=== PATIENT | male | born 1995 | race Caucasian/White ===

== ENCOUNTER 2018-03-09 03:28 | Emergency (ER) | payer OTHER ==
[2018-03-09 04:25] LABS: #Basophils 0.1 thou/uL (0.0-0.2); #Eosinphils 0.1 thou/uL (0.0-0.7); #Lymphocytes 2.5 thou/uL (1.20-3.40); #Neutrophils 6.4 thou/uL (1.40-6.50); %Basophils 0.9 % (0.0-1.0); %Eosinophils 1.2 % (0.0-10.0); %Lymphocytes 24.9 % (21.0-51.0); %Monocytes 9.6 % (0.0-10.0); %Neutrophils 63.4 % (42.0-75.0); Hemoglobin 14.9 g/dL (14.0-18.0); Mean Corpuscular HGB CONC 32.2 g/dL (32.0-36.0); Mean Corpuscular Hemoglobin 28.4 pg (27.0-31.0); Mean Corpuscular Volume 88.2 fL (78.0-98.0); Platelet Count 334 thou/uL (130-400); RBC Distribution Width 12.5 % (11.5-14.5); Red Blood Cell (RBC) Count 5.24 mill/uL (4.70-6.10)
[2018-03-09] MEDS ORDERED: diphenhydrAMINE 50 MG/ML VIAL ONE ×2 (04:28→06:22)
[2018-03-09 04:43] LABS: ALT (SGPT) 19 U/L (8-55); AST (SGOT) 12 U/L (5-34); Albumin 4.1 g/dL (3.5-5.0); Alkaline Phosphatase 80 U/L (40-150); Anion Gap 11 mmol/L (10-20); BUN (Urea Nitrogen) 16 mg/dL (8.9-20.6); Bilirubin, Total 0.5 mg/dL (0.2-1.2); Calc. Creatinine Clearance 0 mL/min (70-130); Calcium 9.6 mg/dL (7.8-10.44); Carbon Dioxide 25 mmol/L (22-29); Chloride 104 mmol/L (98-107); Estimated GFR-MDRD 85; Globulin 3.1 g/dL (2.4-3.5); Glucose 108 mg/dL (70-105); Potassium 3.8 mmol/L (3.5-5.1); Protein, Total 7.2 g/dL (6.0-8.3); Sodium 136 mmol/L (136-145)
[2018-03-09] MEDS ORDERED: Promethazine HCl 25 MG/ML VIAL ONE (04:53)
[2018-03-09] MEDS ORDERED: Magnesium 2 GM/50 ML BAG (IN WATER) ONE (05:54)
[2018-03-09 06:16] LABS: Bilirubin Negative (Negative); Blood, Urine Negative (Negative); Clarity CLOUDY (Clear); Glucose, Urine (Dipstick) Negative (Negative); Leukocyte Trace (Negative); Nitrite Negative (Negative); Protein, Urine (Dipstick) Negative (Neg-Trace); Specific Gravity, Urine 1.021 (1.002-1.036); pH, Urine 6.5 (5.0-9.0)
[2018-03-09 06:19] LABS: Bacteria/HPF None Seen HPF (None Seen); Hyaline Casts/LPF 0-3 HYALINE CAST LPF (0-3 Hyaline); Pathc Cast-AUWi Flag 0.14 (0-2.49); RBC/HPF 0-3 HPF (0-3); Squamous Epithelial 0-3 HPF (0-3); WBC/HPF 0-3 HPF (0-3)
--- NOTE | 2018-03-09 08:22 | RAD ---
SHUNTOGRAM: HISTORY: [employer] NET OR TRAP shunt catheter. Headache. COMPARISON: None. FINDINGS: One view pelvis, 1 view abdomen, lateral view neck, lateral view calvarium, AP calvarium, and AP neck radiograph demonstrate a left-sided ventriculoperitoneal shunt catheter. Shunt tubing courses along the left aspect of the neck, left hemithorax, left upper quadrant, crossing midline in the abdomen, and terminating in the midline of the pelvis. Catheter appears to be intact. Visualized osseous structures are unremarkable. Bowel gas pattern is nonspecific. No consolidation or mass. No pleural effusion or pneumothorax. The visualized calvarium is intact. Aeration of the sinuses and mastoid air cells is symmetric. IMPRESSION: Intact ventriculoperitoneal shunt catheter. POS: SHYANNE
--- NOTE | 2018-03-09 09:23 | CT ---
PRELIMINARY REPORT/[facility]/EMERGENTY AFTER-HOURS PROCEDURE CT Head Without Intravenous Contrast EXAM DATE/TIME: 03/09/2018 3:58 AM CLINICAL HISTORY: 23 years old, male; Pain; Headache; Migraine; With aura; Other: Unknown TECHNIQUE: Axial computed tomography images of the head/brain without intravenous contrast. COMPARISON: No relevant prior studies available. FINDINGS: Tubes, catheters and devices: DRUM BARKER OPERATOR shunt catheter tip is in the 5 cm inferior left temporal arachnoid c yst. Brain: 5 cm inferior temporal arachnoid cyst. There is a left frontotemporal CSF density subdural col lection measuring up to 9 mm in maximum thickness. No acute blood. No brain edema. Midline shift: No midline shift. Ventricles: Normal. No ventriculomegaly. Bones/joints: Normal. No acute fracture. Sinuses: Normal as visualized. No acute sinusitis. Mastoid air cells: Normal as visualized. No mastoid effusion. Soft tissues: Normal. IMPRESSION: 1. DRUM BARKER OPERATOR shunt catheter tip is in the 5 cm inferior left temporal arachnoid cyst. 2. There is a left frontotemporal CSF density subdural collection measuring up to 9 mm in maximum thi ckness. This could be a chronic subdural hematoma or chronic subdural effusion/hygroma. No midline sh ift. Recommend comparison with any available prior studies, currently unavailable at time of interpretation. Thank you for allowing us to participate in the care of your patient. Dictated and Authenticated by: Edgar Branham MD 03/09/2018 4:46 AM Central Time ([place] & [place]) FINAL REPORT NONCONTRAST HEAD CT: HISTORY: DRUM BARKER OPERATOR shunt. Headache. COMPARISON: None. FINDINGS: This report is in agreement with the preliminary report by [facility]. There is an arachnoid cyst in the le ft middle cranial fossa. There is a DRUM BARKER OPERATOR shunt catheter which is within this arachnoid cyst. There is also evidence of a CSF density along the left frontotemporal region which may represent a subdural h ygroma. With regard to the ventricular system, no evidence of hydrocephalus. Comparison with prior imaging would be beneficial. POS: SHYANNE
--- NOTE | 2018-03-09 14:41 | CON ---
DATE OF CONSULTATION: 03/09/2018 HISTORY OF PRESENT ILLNESS: Mr. Dutton came to the emergency department last night for a sudden onse t of headache and blurry vision. The patient states that he had pressure in the back of his head as well as some nausea and no vomiting, headache and blurred vision. He states that he did not have any injury last night. States that he woke up and did not feel well. Neurosurgery was consulted glendy velazquez this patient had a shunt placed for an arachnoid cyst when he was 6 years old. He has not had any revisions and the last time he had it checked was when he was 11. The shunt was done in [place] by __ ___. According to his live-in girlfriend, they did have intercourse last night. Possible this is a post-coital headache. A CT of the head was done and a shuntogram CT shows a fluid buildup in the sub dural area. There is no shift noted that shunt is in place. Currently, when I enter the hospital [facility], Mr. Dutton is sleeping. He is not having any pain. No numbness or tingling. He denies any blur red vision. Denies any nausea. The patient is able to move all 4 extremities. He does not have any fever or chills and would like to go back to sleep. REVIEW OF SYSTEMS: The patient denies any fever or chills. Denies nausea, vomiting. Denies any lisa nges in his hearing. States that he was having blurred vision which is resolved now. States that he does not have any abdominal pain. No chest pain, no palpitations. Denies any constipation, diarrhe a. Does not have any muscle pain. No neck pain. Patient had headache earlier, denies it now. PAST MEDICAL HISTORY: Arachnoid cyst with shunt placement at 6 years old, recent diagnosis of anxiet y, depression. PAST SURGICAL HISTORY: NETWORK ANNOUNCER shunt. SOCIAL HISTORY: The patient denies any alcohol use, drug use or smoking history. [place] [facility] [place] with his girlfriend. 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 MEDICATIONS: Sertraline, alprazolam. ALLERGIES: No known drug allergies. PHYSICAL EXAMINATION: CONSTITUTION: Patient is resting comfortably in his hospital bed. He is afebrile, normotensive. Do es not appear to be toxic. He is pain free, alert, and oriented to person, place, and time. HEENT: Head is normocephalic, atraumatic. Hearing is intact. Vision is intact. Pupils are equal, round, reactive to light. Extraocular movements are intact. There are no nystagmus present, moist m ucous membranes. NECK: Normal range of motion, flexion, extension and pain free. No tenderness upon palpation. RESPIRATORY: Normal work of breathing room air. CARDIOVASCULAR: Normal S1, S2, regular rate and rhythm. MOTOR: Patient has normal strength in upper and lower extremities 5/5 in bilateral deltoids, biceps, triceps, and normal automatic driller and reamer strength, 5/5 bilateral hip flexion, knee flexion and extension, dorsiflexi on, plantar flexion. Sensation is intact bilaterally. NEUROLOGIC: The patient is alert and oriented to person, place and time. Cranial nerves are tested and intact. There is no pronator drift. There is normal sensation bilaterally. There is no deep te ndon reflex asymmetry. Speech is fluent, spontaneous, normal fund of knowledge. IMAGIN. CT head NETWORK ANNOUNCER shunt catheter tip is in the 5 cm inferior left temporal arachnoid cyst. 2. There is a left frontotemporal CSF density subdural collection measuring up to 9 mm in thickness. There is no midline shift. Shuntogram: Shunt appears to be in place and no visible disruption to the tubing. ASSESSMENT AND PLAN: This is a 23-year-old male who reports to the ED for evaluation of headache and blurred vision. The patient has a NETWORK ANNOUNCER shunt that was placed when he was 6. Evaluation of the [address] segun ws a collection of CSF in the subdural area. There is no midline shift. This fluid collection appea rs to be chronic and is not the cause of his symptoms. This is possibly a post-coil headache. The p atient is nontoxic, afebrile and he is pain free. Visual acuity is intact. No nausea or vomiting at this time. We would like to follow up with the patient in the office or with his prior neurosurgica l team.
== END 2018-03-09 08:45 | disposition home or self-care (01) ==
LOC: ERS 03:28
DX: R51 Headache (principal); H57.02 Anisocoria; F41.9 Anxiety disorder, unspecified; F32.9 Major depressive disorder, single episode, unspecified; Z79.899 Other long term (current) drug therapy
CPT/HCPCS: 36415; 70450; 75809; 80053; 81003; 81015; 85025; 96365; 96367; 96375; 96376; J1200; J2550

== ENCOUNTER 2018-03-14 01:09 | Emergency (ER) | payer OTHER ==
--- NOTE | 2018-03-14 10:45 | CT ---
PRELIMINARY REPORT/[facility]/EMERGENTY AFTER-HOURS PROCEDURE CT Head Without Intravenous Contrast EXAM DATE/TIME: 03/14/2018 2:00 AM CLINICAL HISTORY: 23 years old, male; Pain; Headache; Migraine; With aura; Does not respond to medication; Severity not specified; Prior surgery; Surgery date: 6+ months; Surgery type: Shunt; Patient HX: M22 reports to e d C/O blurred vision. PT reports blurred vision started on sunday. PT reports was seen prior to today and CT showed csf build up. PT reports he has a vp software shunt placed when he was young. PT reports h e currently has a GARCIA, and started vomiting. PT reports feels dizzy upon standing. PT reports pain, pr essure, is worse when he lays down, behind the eyes TECHNIQUE: Axial computed tomography images of the head/brain without intravenous contrast. COMPARISON: CT Brain WO Con 03/09/2018 3:58 AM FINDINGS: Brain: There is a LEFT sided intracranial drain/shunt with tip within the LEFT middle cranial fossa. There is a LEFT frontal hypoattenuating subdural collection which is similar to prior measuring up to 9 mm in short axis possibly representing chronic subdural hemorrhage versus cystic hygroma. Ventricles: Normal. No ventriculomegaly. Bones/joints: Patient is post LEFT frontotemporal craniotomy. Sinuses: Normal as visualized. No acute sinusitis. Mastoid air cells: Normal as visualized. No mastoid effusion. Soft tissues: Normal. IMPRESSION: 1. Since CT head performed 03/09/18, no significant interval change. 2. Stable LEFT frontal subdural collection as above. 3. Left-sided cranial drain with tip within the middle cranial fossa. 4. No acute intracranial hemorrhage. Thank you for allowing us to participate in the care of your patient. Dictated and Authenticated by: Jayden Dunn MD 03/14/2018 2:19 AM Central Time ([place] & [place]) FINAL REPORT EMERGENCY AFTER HOURS CT BRAIN: Date: 03/14/18 IMPRESSION: I agree with the preliminary interpretation given by Anjelica. POS: TPC
== END 2018-03-14 04:08 | disposition home or self-care (01) ==
LOC: ERS 01:09
DX: R51 Headache (principal); F41.9 Anxiety disorder, unspecified; F32.9 Major depressive disorder, single episode, unspecified; Z79.899 Other long term (current) drug therapy
CPT/HCPCS: 70450

== ENCOUNTER 2018-03-21 12:00 | Inpatient (IN) | payer OTHER ==
--- NOTE | 2018-03-22 07:41 | HP ---
HISTORY OF PRESENT ILLNESS: A 23-year-old male who presents for followup from the hospital visit on 03/09/2018. The patient has been seen in the emergency department for severe headache with blurred v ision. He states that the headache went away following medications in the ER; however, last Sunday t he headaches returned and the left eye became blurry. He states that he was in the emergency departm ent again on 03/14/2018. The patient has had 2 CT scans of his brain which are unchanging showing a left-sided subdural collection of CSF. The patient had a shunt placed in an arachnoid cyst when he w as 6 years old. He has not had any revisions of the shunt. The patient states that he has had const ant headache and blurred vision in left eye, Sunday he was began vomiting up any solid food. He jocelin es any fever or chills. No sore throat, abdominal pain. The patient states that he has been slightl y off balance recently and he does not have an credit balance specialist. REVIEW OF SYSTEMS: A 10-point review of systems is negative other than stated above in the HPI. PAST MEDICAL HISTORY: Anxiety, depression, headaches, arachnoid cyst. PAST SURGICAL HISTORY: BUTTON SAWYER shunt in 2000. FAMILY HISTORY: Father is alive. Mother is alive, diagnosed with diabetes and hypertension. One ild that is . SOCIAL HISTORY: The patient is a nonsmoker, does not use other tobacco products, alcohol, or drugs. 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 MEDICATIONS: Xanax and sertraline. ALLERGIES: No known drug allergies. PHYSICAL EXAMINATION: GENERAL: The patient is alert and oriented to person, place and time. Does not appear to be in any visible distress. HEENT: Head is normocephalic, atraumatic. Pupils are equal, round, reactive to light. Extraocular movements are intact. Pupils are intact. Hearing is intact. Moist mucous membranes. NECK: Soft, supple. No masses are noted. Range of motion is intact and nonpainful. RESPIRATORY: Normal work of breathing room air. CARDIOVASCULAR: Regular rate and rhythm. Normal S1, S2. NEUROLOGIC: Awake, alert and oriented x3. Memory, attention, fund of knowledge and language are nor mal. Cranial nerves normal. Cranial nerves III-XII are intact. Left eye decreased visual field acu ity. Upper extremity, 5/5 bilateral strength, deltoid, biceps, triceps, wrist extension, finger exte nsion, finger intrinsics, sensation equal bilaterally. Symmetric reflexes bilaterally. Gait and sta tion normal. Sit to stand normal, gait shows some level, but no step-off to the side. ASSESSMENT AND PLAN: Acute non intractable headaches, post BUTTON SAWYER shunt placement, arachnoid cyst. Dr. Lemons has offered surgery to remove current BUTTON SAWYER shunt and place a monitor in current arachnoid cys t and monitor for change in pressure.
[2018-03-22] MEDS ORDERED: Thrombin 5000 UNITS/5 ML VIAL ONE (10:48)
[2018-03-22] MEDS ORDERED: Sodium Chloride 0.9% 10 ML ONE (10:48)
[2018-03-22] MEDS ORDERED: Lidocaine 0.5%/Epinephrine 1:200,000 50 ml Vial ONE (10:48)
[2018-03-22] MEDS ORDERED: CEFAZOLIN 2 GM/50 ML BAG ONE (11:11)
[2018-03-22] MEDS ORDERED: Fentanyl 100 MCG/2 ML VIAL ONE ×3 (11:34→16:17)
[2018-03-22 11:37] LABS: INR-International Normal Ratio 1.1; Prothrombin Time 13.8 SEC (12.0-14.7)
[2018-03-22 11:38] LABS: PTT 30.5 SEC (22.9-36.1)
[2018-03-22] MEDS ORDERED: PROPOFOL 20 ML ONE (13:20)
[2018-03-22] MEDS ORDERED: Acetaminophen/Codeine 30-300mg Tablet PO PRN ×2 (13:44)
[2018-03-22] MEDS ORDERED: Bisacodyl 10 MG SUPP PR PRN (13:44)
[2018-03-22] MEDS ORDERED: Mag-Al 1200 mg/1200 mg/30 ML UDCUP PO PRN (13:44)
[2018-03-22] MEDS ORDERED: diphenhydrAMINE 50 MG/ML VIAL IVP PRN (13:44)
[2018-03-22] MEDS ORDERED: diphenhydrAMINE 25 MG CAP PO PRN (13:44)
[2018-03-22] MEDS ORDERED: traMADol HCl 50 MG TAB PO PRN ×2 (13:44)
[2018-03-22] MEDS ORDERED: Acetaminophen 650 MG Suppository PR PRN (13:44)
[2018-03-22] MEDS ORDERED: Milk Of Magnesia 30 ML UDCUP PO PRN (13:44)
[2018-03-22] MEDS ORDERED: tiZANidine HCl 4 MG TAB PO PRN (13:44)
[2018-03-22] MEDS ORDERED: Ondansetron HCl/PF 4 MG/2 ML Vial IVP PRN (13:46)
[2018-03-22] MEDS ORDERED: Lidocaine 1% PF 5 ML VIAL ONE (14:00)
[2018-03-22] MEDS ORDERED: Glycopyrrolate 0.2 MG/ML 5 ML SYRINGE ONE (14:00)
[2018-03-22] MEDS ORDERED: Ondansetron PF 4 MG/2 ML Vial ONE (14:00)
[2018-03-22] MEDS ORDERED: PROPOFOL 200 MG/20 ML VIAL ONE (14:00)
[2018-03-22] MEDS: Sodium Chloride 0.9% 1,000 ML IV SCH (18:09)
[2018-03-22] MEDS: Ondansetron PF 4 MG/2 ML Vial IVP PRN (18:44)
[2018-03-22 19:44] VITALS: BMI 34.7
[2018-03-22] MEDS: CEFAZOLIN 2 GM/50 ML BAG IVPB SCH (20:37)
[2018-03-22] MEDS: ALPRAZolam 0.25 MG TAB PO PRN (20:47)
[2018-03-22] MEDS: Morphine 4 MG/ML VIAL SLOW IVP PRN (21:31)
[2018-03-23] MEDS: Morphine 4 MG/ML VIAL SLOW IVP PRN ×2 (01:21→09:23)
[2018-03-23] MEDS: Sodium Chloride 0.9% 1,000 ML IV SCH ×2 (03:23→16:40)
[2018-03-23] MEDS: ALPRAZolam 0.25 MG TAB PO PRN ×2 (03:24→13:58)
[2018-03-23] MEDS: CEFAZOLIN 2 GM/50 ML BAG IVPB SCH ×3 (04:41→20:27)
[2018-03-23] MEDS: Ondansetron PF 4 MG/2 ML Vial IVP PRN ×3 (08:39→20:38)
--- NOTE | 2018-03-23 09:58 | PRG ---
DATE OF SERVICE: 03/23/2018 SUBJECTIVE: I see Mr. Dutton. He is alert and generally appropriate, although slightly drowsy. He is complaining of headache and some nausea. His ICPs have been oscillating between 18 and 22 and ass ociated with significant symptoms. Draining 10 mL of CSF seems to alleviate the symptoms and reduces the ICP very briefly. This has been going on mostly through the night. At this point, I think we have demonstrated that he does have slightly elevated ICPs associated with symptoms. We will begin to drain 10 mL hourly as a matter of routine.
[2018-03-23] MEDS: Acetaminophen 1,000 MG in Premix Bag 1 BAG IVPB PRN (19:08)
[2018-03-24] MEDS: Acetaminophen 1,000 MG in Premix Bag 1 BAG IVPB PRN ×4 (01:50→19:46)
[2018-03-24 02:23] LABS: Anion Gap 12 mmol/L (10-20); BUN (Urea Nitrogen) 12 mg/dL (8.9-20.6); Calc. Creatinine Clearance 240 mL/min (70-130); Calcium 9.5 mg/dL (7.8-10.44); Carbon Dioxide 24 mmol/L (22-29); Chloride 107 mmol/L (98-107); Estimated GFR-MDRD Greater than 90; Glucose 124 mg/dL (70-105); Potassium 3.8 mmol/L (3.5-5.1); Sodium 139 mmol/L (136-145)
[2018-03-24] MEDS: CEFAZOLIN 2 GM/50 ML BAG IVPB SCH ×3 (04:46→19:47)
[2018-03-24] MEDS: Ondansetron PF 4 MG/2 ML Vial IVP PRN ×2 (06:02→11:22)
[2018-03-24] MEDS: Morphine 4 MG/ML VIAL SLOW IVP PRN (06:02)
[2018-03-24] MEDS: Sodium Chloride 0.9% 1,000 ML IV SCH ×2 (06:08→19:47)
[2018-03-24] MEDS: ALPRAZolam 0.25 MG TAB PO PRN (08:33)
[2018-03-25] MEDS: CEFAZOLIN 2 GM/50 ML BAG IVPB SCH ×3 (03:40→20:50)
[2018-03-25] MEDS: Acetaminophen 1,000 MG in Premix Bag 1 BAG IVPB PRN ×3 (03:40→19:48)
--- NOTE | 2018-03-25 07:18 | PRG ---
DATE OF SERVICE: 03/25/2018 SUBJECTIVE: Mr. Abelardo Dutton was seen in the ICU this morning. His drain is open at 5 cm of water a nd the CSF reservoir is nearly full. He has no headache or blurry vision currently. He gotten heada ches over the weekend in fact, headache and pain became so severe and he had brief apneic episodes co rrelating with a very high intracranial pressure. Eventually, the drain was opened. History from strongly suggests that he is dependent on drainage for management of intracranial pressure. Currently, the vitals are all stable. The pressure is 5 cm as the drain is open and he is awake and alert and answering questions appropriately. We will make a plan for CT scan today. We will send the CSF for culture and Gram stain. We looked a t our surgical schedule for placement of a new cystoperitoneal shunt system on Sunday or Sunday.
--- NOTE | 2018-03-25 07:45 | OP ---
DATE OF PROCEDURE: 03/22/2018 SURGEON: Dr. Lemons. AUCTIONEER TOBACCO: Aby Roman PA-C PREOPERATIVE DIAGNOSES: Failure of the cystoperitoneal shunt, external hydrocephalus. POSTOPERATIVE DIAGNOSES: Failure of the cystoperitoneal shunt, external hydrocephalus. OPERATIVE PROCEDURE: Removal of a cystoperitoneal shunt system, placement of arachnoid cyst drain an d connection of pressure monitoring device. PREOPERATIVE MEDICATION: Ancef 2 grams IV. DRAIN NUMBER: One. DRAIN TYPE: Arachnoid cyst drain. OPERATIVE DICTATION: The patient was brought to the operating room. General endotracheal anesthesia was induced. The left shoulder was bumped. Hair was removed from the abdomen, chest, and scalp. W e identified the previous incision for arachnoid cyst shunt placement. The left side of the scalp, t he neck, the chest and the abdomen were sterilely prepped and draped. We opened the previous incisio n of the cranial cavity and identified the arachnoid cyst drain and the valve device. We brought the valve out of its pocket. We attempted to remove all of the peritoneal portion of the catheter from the same incision, but it snapped in the neck. We then made a small incision over the clavicle and r emoved the peritoneal catheter in its entirety. We placed a hemostat on the arachnoid cyst portion o f the drain. We removed it and measured its length. We replaced exactly that amount of length of th e arachnoid cyst drain and tunneled it posteriorly through a separate stab incision and connected it to the Ryan drain device. We closed the cranial incision and the clavicle incision as well as the abdominal incision that was made to explore the distal portion of the shunt. Sterile dressings were applied. This was a clean case and no contamination.
[2018-03-25] MEDS: Sodium Chloride 0.9% 1,000 ML IV SCH ×2 (08:55→23:50)
--- NOTE | 2018-03-25 09:52 | CT ---
BRAIN CT WITHOUT IV CONTRAST: HISTORY: A 23-year-old male with a history of arachnoid cyst. FINDINGS: Postoperative left frontal craniotomy change with drain placed in the left anterior temporal cyst. N o significant change in the left-sided extraaxial fluid collection. IMPRESSION: New postoperative left-sided craniotomy change with drainage catheter placed within the left anterior middle cranial fossa fluid collection. No significant change from 03/14/2018. No new hemorrhage or mass effect. POS: SHYANNE
[2018-03-25] MEDS: Ondansetron PF 4 MG/2 ML Vial IVP PRN (19:55)
[2018-03-25] MEDS: ALPRAZolam 0.25 MG TAB PO PRN (23:45)
[2018-03-26] MEDS: Acetaminophen 1,000 MG in Premix Bag 1 BAG IVPB PRN (01:51)
[2018-03-26] MEDS: CEFAZOLIN 2 GM/50 ML BAG IVPB SCH ×3 (04:12→20:19)
--- NOTE | 2018-03-26 07:06 | PRG ---
DATE OF SERVICE: 03/26/2018 SUBJECTIVE: I saw Mr. Dutton in the ICU this morning. Yesterday evening, he had a headache and a drain was moved from 5 cm of water to 0 cm of water. He thinks this helped with his head pain. He had no neurological decline. This morning, Mr. Dutton has minimal headache if any. He is wide awake. He is alert. He is answering questions. There is no cranial neuropathy. There is no neurological deficit. The drain site looks clean and dry. We are making plans for Mr. Dutton to have his shunt replaced. We will have the lowest pressure valve we can find or a valveless system in place. My only concern with a valveless system is reflux through the tubing. We tried to find a Delta 0.5 valve or [address] a programmable valve and leave it on the lowest setting possible. The timing of the surgery will be up to Mr. Dutton, we can likely get it done this afternoon or tomorrow afternoon. We will give this as preference. If he decides for tomorrow, then we will allow him to eat and keep him n.p.o. after midnight tonight. Consent: I discussed the indications, risks, benefits, alternative, and expected outcomes of placing a new cystoperitoneal shunt. The risks discussed included, but were not limited to, bleeding, infection, brain damae, seizure, stroke, visual loss, dependence for care, abdominal organ injury, peritonitis, cardiopulmonary complications of anesthesia, and . He understands and is willing to proceed. HEIDI
--- NOTE | 2018-03-26 08:47 | CT ---
PRELIMINARY REPORT/[facility]/EMERGENTY AFTER-HOURS PROCEDURE CT Head Without Intravenous Contrast EXAM DATE/TIME: 03/26/2018 5:12 AM CLINICAL HISTORY: 23 years old, male; Condition or disease; Other: S/P crani; Prior surgery; Surgery date: Postoperativ e (0-2 days); Patient HX: F/u S/P craniotomy TECHNIQUE: Axial computed tomography images of the head/brain without intravenous contrast. COMPARISON: CT Brain WO Con 03/25/2018 8:04 AM FINDINGS: Brain: Stable surgical changes including left temporal craniotomy, subdural drain in stable position along the tip of the left temporal lobe and surgical luz in the left temporal scalp. Again seen i s an unchanged air and fluid collection along the left frontal lobe and the tip of the left temporal lobe. No new mass effect, midline shift or extra axial fluid collections. Benton-white matter different iation is normal. Ventricles: Normal. No ventriculomegaly. Bones/joints: Normal. No acute fracture. Sinuses: Normal as visualized. No acute sinusitis. Mastoid air cells: Normal as visualized. No mastoid effusion. Soft tissues: Normal. IMPRESSION: Stable surgical changes and left frontal and temporal fluid collection. Thank you for allowing us to participate in the care of your patient. Dictated and Authenticated by: Rian Westfall MD 03/26/2018 5:47 AM Central Time ([place] & [place]) FINAL REPORT CT BRAIN WITHOUT CONTRAST: FINDINGS/IMPRESSION: I agree with the findings and impression given in the preliminary report per [facility] physician. There ar e stable post-surgical changes of the left calvarium with extraaxial fluid collection along the left frontal and temporal convexities. POS: TPC
[2018-03-26] MEDS ORDERED: Lidocaine 0.5%/Epinephrine 1:200,000 50 ml Vial ONE (11:37)
[2018-03-26] MEDS ORDERED: Sodium Chloride 0.9% 10 ML ONE (11:37)
[2018-03-26] MEDS ORDERED: Thrombin 5000 UNITS/5 ML VIAL ONE (11:37)
[2018-03-26] MEDS: Sodium Chloride 0.9% 1,000 ML IV SCH (12:05)
[2018-03-26] MEDS ORDERED: Fentanyl 100 MCG/2 ML VIAL ONE ×2 (12:36→14:07)
[2018-03-26] MEDS ORDERED: Scopolamine 1.5 mg/72 hour Patch ONE (12:48)
[2018-03-26] MEDS ORDERED: Vancomycin HCl 20 MG, Gentamicin (PEDI) 8 MG, Admixture Fee 1 EACH in Sodium Chloride 0... FS SCH (13:15)
[2018-03-26] MEDS ORDERED: PACU-Morphine 4MG/ML VIAL SLOW IVP PRN (13:56)
[2018-03-26] MEDS ORDERED: Morphine Sulfate 2 MG/ML SYRINGE SLOW IVP PRN (13:56)
[2018-03-26] MEDS ORDERED: Ondansetron HCl/PF 4 MG/2 ML Vial IVP PRN (13:56)
[2018-03-26] MEDS ORDERED: HYDROmorphone 2 MG/ML VIAL SLOW IVP PRN (13:56)
[2018-03-26] MEDS ORDERED: Glycopyrrolate 0.2 MG/ML 5 ML SYRINGE ONE (16:08)
[2018-03-26] MEDS ORDERED: Ondansetron PF 4 MG/2 ML Vial ONE (16:08)
[2018-03-26] MEDS ORDERED: Dexamethasone 20 MG/5 ML VIAL ONE (16:08)
[2018-03-26] MEDS ORDERED: Metoclopramide HCl 10 MG/2 ML VIAL ONE (16:08)
[2018-03-26] MEDS ORDERED: PROPOFOL 200 MG/20 ML VIAL ONE (16:08)
[2018-03-26] MEDS ORDERED: PHENYLEPHRINE-NS 100 MCG/ML 10 ML SYRINGE ONE (16:08)
[2018-03-26] MEDS ORDERED: Lidocaine 1% PF 5 ML VIAL ONE (16:08)
[2018-03-26] MEDS: Acetaminophen 325 MG TAB PO PRN (20:17)
--- NOTE | 2018-03-26 20:23 | OP ---
DATE OF SURGERY: 03/26/2018 PERFORMED BY: Mildred Lemons M.D MEDICAL ADMINISTRATIVE: Aby Roman PA-C PREOPERATIVE INDICATION: Prevent neurological deterioration. PREOPERATIVE DIAGNOSIS: Left middle fossa arachnoid cyst, shunt dependent. POSTOPERATIVE DIAGNOSIS: Left middle fossa arachnoid cyst, shunt dependent. OPERATIVE PROCEDURE: The patient was brought from the ICU to the operating theater. General endotra cheal anesthesia was induced. The patient was positioned supine on the operating table with his head turned to the right and supported by gel-filled donut-shaped headrest. The left shoulder was bumped slightly with a folded towel. More hair was removed from the abdomen, chest, neck, and scalp from l ast week. The arachnoid cyst drainage system was opened and 15 mL of CSF were allowed to emanate. T he scalp was sterilely prepped once and then the drain was removed as well as luz from the crania l incision. The head, neck, chest, and abdomen were sterilely prepped again. We draped in the usual fashion for shunt placement. We then began our operation by opening of an incision about 2 fingerbr eadths under the margin of the rib cage on the right side. We controlled bleeding with gentle bipola r cautery. We dissected down to the fascia. The fascia was incised sharply and we spread rectus mus georgiana until we reached the inferior portion of the fascia. The fascia was opened again and preperitone al fat was visualized. One fold of peritoneum was seen in the preperitoneal fat and placed hemostats on it. We brought a fold of peritoneum up through the incision between 2 hemostats. We cut between them and visualized omental fat and peristalsis. We then placed hemostats around the peritoneal ope vance and passed a pursestring suture of 4-0 Silk. We then turned our attention to cranial incisions. We opened a curvilinear incision posterior and superior to the pinna on the left side and created a pocket for the valve. We tunneled with a shunt passer from that incision all the way to the abdomin al incision and then passed the peritoneal catheter through that trajectory. We then opened the prio r anterior cranial incision and placed a self-retaining retractor. We found the entry point into the arachnoid cyst with CSF emanating. We placed 4 cm of the ventricular catheter into the arachnoid cy st and tunneled the distal ends under the scalp to the incision behind the pinna. Here we connected a low pressure flow control valve to the peritoneal catheter in the appropriate direction. Proximal portion was placed in sterile saline with bacitracin irrigation. It was pumped until the irrigant ra n out the distal end in our peritoneal incision. We then injected 2 mL of antibiotic solution contai vance 10 mg of vancomycin and 4 mg of gentamicin into the arachnoid cyst catheter. We quickly cut the catheter to appropriate length and attached it to the proximal end of the valve. We reinforced both valve attachments with silk suture and then we took slack out of the system by pulling the peritonea l end of the catheter through that incision. We tacked the valve down to the periosteum. We ensured that the tubing from the arachnoid cyst to the valve was not kinked by creating connections between her flaps and the periosteum, so that there was a smooth curve from the arachnoid cyst all the way to the valve without any kinking. We irrigated with copiously with bacitracin irrigation. We pumped t he valve and made sure that CSF emanated from the distal end. We closed the cranial incisions. We p assed the distal end of the peritoneal catheter into the peritoneum and tightened our pursestring elizabet und it. We closed the fascia with interrupted 2-0 Vicryls and closed the fat and dermis. We closed the fat as well around the peritoneal catheter. All three incisions were closed in anatomic layers a nd sterile dressings were applied. This was a clean case and no contamination.
[2018-03-27] MEDS: Acetaminophen 325 MG TAB PO PRN (03:34)
[2018-03-27] MEDS: CEFAZOLIN 2 GM/50 ML BAG IVPB SCH (03:34)
--- NOTE | 2018-03-27 07:53 | PRG ---
DATE OF SERVICE: 03/27/2018 Mr. Dutton is 1 day out from creation of a new arachnoid cyst to peritoneal shunt. He had ICP elevat ions over the last weekend correlated with headache and neurological trouble. Therefore, we deemed h im dependent on shunting. He was taken to the operating room yesterday where a new shunt was placed. Surgery was uncomplicated and he feels great this morning. He wants to get home. Overnight, the vitals have been stable. His neurological examination is quite good. He has some vis ual disturbance in the left eye that remains, but the ophthalmology appointment will be recommended. As an outpatient, his casting associate feels he had papilledema and I would give the new low pressure valve a few weeks to months to improve the vision, unless there is some other issue can be determined by his eye doctor. Follow up arrangements have been made in our office to check his incisions in ab out 2 weeks. I asked him to keep the dressings on until tomorrow and then start showering thereafter .
[2018-03-27 08:19] VITALS: TEMP 98.9
== END 2018-03-27 08:55 | disposition home or self-care (01) | DRG 909 ==
LOC: SURG A 03-22 10:52 → EDSTATUS 03-22 12:00 → CCU 03-22 17:45
PROVIDERS: ADMIT Neurological Surgery; ATTEND Neurological Surgery
PROC: 009630Z Drainage of Cerebral Ventricle with Drainage Device, Percutaneous Approach (ICD-10-PCS; principal; 2018-03-22)
PROC: 0WPG0JZ Removal of Synthetic Substitute from Peritoneal Cavity, Open Approach (ICD-10-PCS; 2018-03-22)
DX: T85.618A Breakdown (mechanical) of other specified internal prosthetic devices, implants and grafts, initial encounter (principal); Y83.8 Other surgical procedures as the cause of abnormal reaction of the patient, or of later complication, without mention of misadventure at the time of the procedure; Z01.812 Encounter for preprocedural laboratory examination
CPT/HCPCS: 36415; 70450; 80048; 81002; 83930; 83935; 84300; 85025; 85610; 85730; 87070; 87071; 87205; J0131; J1580; J2001; J2270; J2405; J2704; J3010; J3370; J3490

== ENCOUNTER 2018-03-21 12:13 | Outpatient (CLI) | payer OTHER ==
[2018-03-21 13:27] LABS: #Basophils 0.1 thou/uL (0.0-0.2); #Eosinphils 0.1 thou/uL (0.0-0.7); #Monocytes 0.7 thou/uL (0.11-0.59); #Neutrophils 6.4 thou/uL (1.40-6.50); %Basophils 0.6 % (0.0-1.0); %Eosinophils 1.2 % (0.0-10.0); %Lymphocytes 21.3 % (21.0-51.0); %Monocytes 7.5 % (0.0-10.0); %Neutrophils 69.3 % (42.0-75.0); Hemoglobin 14.7 g/dL (14.0-18.0); Mean Corpuscular Hemoglobin 28.7 pg (27.0-31.0); Mean Corpuscular Volume 89.5 fL (78.0-98.0); Mean Platelet Volume 8.6 fL (7.4-10.4); Platelet Count 291 thou/uL (130-400); RBC Distribution Width 12.7 % (11.5-14.5); Red Blood Cell (RBC) Count 5.13 mill/uL (4.70-6.10); White Blood Cell (WBC) Count 9.2 thou/uL (4.8-10.8)
== END 2018-03-21 12:14 | disposition home or self-care (01) ==
LOC: LABBT 12:13
PROVIDERS: ATTEND Neurological Surgery
DX: Z01.812 Encounter for preprocedural laboratory examination (principal); T85.618A Breakdown (mechanical) of other specified internal prosthetic devices, implants and grafts, initial encounter
CPT/HCPCS: 85025

== ENCOUNTER 2018-04-15 19:57 | Emergency (ER) | payer OTHER ==
[2018-04-15] MEDS ORDERED: diphenhydrAMINE 50 MG/ML VIAL ONE (21:03)
[2018-04-15] MEDS ORDERED: Metoclopramide HCl 10 MG/2 ML VIAL ONE (21:03)
[2018-04-15] MEDS ORDERED: Ondansetron PF 4 MG/2 ML Vial ONE (21:24)
--- NOTE | 2018-04-15 21:36 | CT ---
CT HEAD: 04/15/2018 HISTORY: Headaches. Vomiting. Shunt placement. COMPARISON: 03/26/2018 TECHNIQUE: Serial axial CT imaging is obtained at 4.8 mm intervals, from the vertex through the skull base, with out contrast. FINDINGS: The imaged paranasal sinuses and mastoid air cells are well aerated. There is a left temporal shunt tube in place, terminating within the inferior aspect of the left midd le cranial fossa, in a region of CSF density, suggesting an arachnoid cyst. This appears stable when compared to the 03/26/2018 examination. There is prominent CSF density within the subdural space, i n the left frontal region, measuring up to 8 mm in greatest transverse dimension, decreased when comp ared to the 03/26/2018 exam. There is no midline shift noted. There is mild stable prominence of th e temporal horns of the bilateral lateral ventricles. No acute osseous abnormality is seen. The sma ll focus of pneumocephalus, anteriorly, on the left, on the prior examination, is no longer seen. IMPRESSION: Postoperative changes, as detailed above. Findings suggesting arachnoid cyst in the left middle cran ial fossa and mild cerebrospinal fluid prominence in the subdural space, on the left, as detailed abo ve. No discrete acute findings. POS: [facility]
[2018-04-15] MEDS ORDERED: Acetaminophen 500 MG TAB ONE (21:39)
== END 2018-04-15 22:25 | disposition home or self-care (01) ==
LOC: SCSER 19:57
DX: G97.1 Other reaction to spinal and lumbar puncture (principal); F41.9 Anxiety disorder, unspecified; F32.9 Major depressive disorder, single episode, unspecified
CPT/HCPCS: 70450; 96361; 96374; J1200; J2405; J2765

== ENCOUNTER 2018-04-18 13:00 | Outpatient (CLI) | payer OTHER ==
[2018-04-18 14:04] LABS: #Eosinphils 0.1 thou/uL (0.0-0.7); #Lymphocytes 1.5 thou/uL (1.20-3.40); #Monocytes 0.7 thou/uL (0.11-0.59); #Neutrophils 7.9 thou/uL (1.40-6.50); %Basophils 0.4 % (0.0-1.0); %Eosinophils 0.6 % (0.0-10.0); %Lymphocytes 14.9 % (21.0-51.0); %Monocytes 6.4 % (0.0-10.0); %Neutrophils 77.7 % (42.0-75.0); Hemoglobin 14.2 g/dL (14.0-18.0); Mean Corpuscular Hemoglobin 29.9 pg (27.0-31.0); Mean Platelet Volume 7.9 fL (7.4-10.4); Platelet Count 342 thou/uL (130-400); RBC Distribution Width 12.1 % (11.5-14.5); Red Blood Cell (RBC) Count 4.75 mill/uL (4.70-6.10); White Blood Cell (WBC) Count 10.1 thou/uL (4.8-10.8)
--- NOTE | 2018-04-18 14:45 | RAD ---
SHUNT SERIES: Comparison: 03-09-18 History: Arachnoid cyst with symptomatic increased pressure. FINDINGS: Two views of the skull and anterior views of the chest, neck, and abdomen were performed. The patient has a left sided LAUNDRY LABORER shunt. This has been revised since the prior examination with a new LAUNDRY LABORER shunt cat heter. Some residual catheter remains in the left upper neck. The exiting catheter appears intact. Th e distal tip of the shunt catheter is seen in the midline of the pelvis. IMPRESSION: Reviewed LAUNDRY LABORER shunt without evidence of complication. POS: [facility]
== END 2018-04-18 13:01 | disposition home or self-care (01) ==
LOC: RAD 13:00
PROVIDERS: ATTEND Neurological Surgery
DX: G93.0 Cerebral cysts (principal); Z98.2 Presence of cerebrospinal fluid drainage device
CPT/HCPCS: 75809; 85025

== ENCOUNTER 2018-04-25 14:25 | Outpatient (CLI) | payer OTHER ==
--- NOTE | 2018-04-25 16:37 | RAD ---
CERVICAL SPINE THREE VIEWS: Date: 04-25-18 Comparison: None. History: Pain. FINDINGS: Segments of shunt tubing overlie the left neck. No anterolisthesis or retrolisthesis. No prevertebral soft tissue swelling. No acute osseous abnormality. Open mouth odontoid view demonstrates a normal a ppearing dens and C1-2 articulation. IMPRESSION: No acute osseous abnormality seen. POS: [facility]
== END 2018-04-25 14:26 | disposition home or self-care (01) ==
LOC: RAD 14:25
PROVIDERS: ATTEND Neurological Surgery
DX: M54.2 Cervicalgia (principal)
CPT/HCPCS: 72040

== ENCOUNTER 2018-07-17 10:30 | Outpatient (CLI) | payer OTHER ==
--- NOTE | 2018-07-17 12:05 | CT ---
HEAD CT WITHOUT CONTRAST: COMPARISON: 04/15/2018. HISTORY: Two weeks of headache and blurred vision. The patient has a shunt. TECHNIQUE: A noncontrast head CT is performed from the skull base to the skull vertex. FINDINGS: Redemonstration of a ventriculoperitoneal shunt catheter via the left temporal approach. The largest extraaxial fluid collection is in the left middle cranial fossa, measuring 4.5 x 3.6 cm. There are postoperative changes in the overlying calvarium. The visualized SHREDDED FILLER MACHINE WRAPPER LAYER shunt catheter appears to be int act. There is a small amount of extraaxial fluid along the left frontal convexity, measuring 5 mm (p reviously measuring 8 mm). There is stable mild mass effect upon the left frontal lobe. No signific ant midline shift. Basilar cisterns are patent. Cortical sherman-white matter differentiation is prese rved. No evidence of hydrocephalus. IMPRESSION: 1. Redemonstration of a ventriculoperitoneal shunt catheter with unchanged tip position. The distal tip appears to be in the medial aspect of the left middle cranial fossa. 2. Redemonstration of a hypodensity in the left middle cranial fossa. There is evidence of extraaxi al fluid along the left frontal convexity which has slightly decreased in size. POS: [facility]
== END 2018-07-17 10:31 | disposition home or self-care (01) ==
LOC: CT 10:30
PROVIDERS: ATTEND Neurological Surgery
DX: G93.0 Cerebral cysts (principal); R51 Headache; G93.9 Disorder of brain, unspecified; Z98.2 Presence of cerebrospinal fluid drainage device
CPT/HCPCS: 70450

== ENCOUNTER 2018-07-29 08:24 | Outpatient (CLI) | payer OTHER ==
--- NOTE | 2018-07-29 11:20 | CT ---
ABDOMEN AND PELVIS CT NONCONTRAST: CLINICAL HISTORY: Ventriculoperitoneal shunt placement, progressive, persistent headaches. FINDINGS: There is a partially imaged shunt catheter traversing the ventral right chest wall to the right of mi dline traversing to the right ventral abdominal wall and entering into the abdominal cavity at the ri ght mid abdomen via the right rectus abdominus, traversing anteriorly within the peritoneal cavity to the left of midline and descending into the pelvis, where it is coiled at the cul-de-sac. There is a surrounding mild volume of simple-appearing fluid density. No obvious discontinuity along the tract of the catheter is evident. IMPRESSION: A ventriculoperitoneal shunt catheter terminating at the pelvis with a mild volume of surrounding, si mple-appearing fluid. No obvious shunt catheter discontinuity is visualized, within the imaged porti ons. POS: [facility]
--- NOTE | 2018-07-29 14:28 | MRI ---
MRV HEAD NONCONTRAST WITH 3D VOLUME RENDERING: INDICATION: Status post ventricular peritoneal shunt placement, headaches. FINDINGS: There is asymmetric prominence of the right transverse sinus with mild heterogeneity likely related t o turbulent flow at the medial aspect near its junction with the superior sagittal sinus and straight sinus. There is no evidence of dural vein thrombus otherwise identified in the superior sagittal, s traight, transverse, or sigmoid sinuses. IMPRESSION: Asymmetric prominence in size of right transverse sinus with signal heterogeneity likely due to turbu lent flow. POS: [facility]
--- NOTE | 2018-07-29 14:33 | MRI ---
MRI BRAIN WITHOUT CONTRAST: HISTORY: Arachnoid cyst status post ventriculoperitoneal shunt placement. FINDINGS: Moderate sized CSF signal intensity collection at the left middle cranial fossa is present, with asso ciated effacement of the anterior pole, left temporal lobe. There is a traversing catheter visualize d within this region. The finding is consistent with an arachnoid cyst with axial diameter measureme nts of 3.7 x 3.3 cm. No evidence of vasogenic edema. The ventricular system is normal in size. The septum pellucidum is at midline. No intracranial hemorrhagic susceptibility. There is a subdural CSF signal intensity collection overlying the left frontal parietal convexity, wi th slight complexity to the fluid signal, with a maximum thickness of approximately 8 mm, which is in creased in volume compared to a 07/17/[address] There is multifocal susceptibility artifact of t his region, likely post procedural, related to traversing drainage catheter. There is no acute jus torial infarction. There is asymmetric prominence of a right transverse sinus flow void. A slight d egree of left cerebral hemispheric sulcal effacement remains. IMPRESSION: 1. Left middle cranial fossa arachnoid cyst with traversing drainage catheter, partially visualized. 2. Slight increase in volume of previously described extraaxial fluid collection along the left fron toparietal convexity. This demonstrates mild signal complexity and, therefore, may relate to a subdu ral fluid collection with a slight degree of post procedural blood products, given traversing drainag e catheter. Given slight interval size enlargement, continued imaging followup is warranted for cont inued surveillance. 3. Asymmetric size prominence of right transverse sinus flow void. This is favored to reflect turbu lent flow rather than thrombus. POS: [facility]
== END 2018-07-29 08:25 | disposition home or self-care (01) ==
LOC: TBSIIMAG 08:24
PROVIDERS: ATTEND Neurological Surgery
DX: G93.0 Cerebral cysts (principal); R51 Headache; Z98.2 Presence of cerebrospinal fluid drainage device
CPT/HCPCS: 70544; 70551; 74176

== ENCOUNTER 2018-08-18 23:50 | Inpatient (IN) | payer OTHER ==
[2018-08-19 01:10] LABS: #Basophils 0.1 thou/uL (0.0-0.2); #Eosinphils 0.1 thou/uL (0.0-0.7); #Lymphocytes 2.5 thou/uL (1.20-3.40); #Monocytes 0.7 thou/uL (0.11-0.59); #Neutrophils 7.5 thou/uL (1.40-6.50); %Basophils 0.7 % (0.0-1.0); %Eosinophils 1.2 % (0.0-10.0); %Monocytes 6.2 % (0.0-10.0); %Neutrophils 68.8 % (42.0-75.0); Mean Corpuscular HGB CONC 33.6 g/dL (32.0-36.0); Mean Corpuscular Hemoglobin 29.9 pg (27.0-31.0); Mean Corpuscular Volume 88.9 fL (78.0-98.0); Mean Platelet Volume 7.4 fL (7.4-10.4); Platelet Count 349 thou/uL (130-400); Red Blood Cell (RBC) Count 5.02 mill/uL (4.70-6.10); White Blood Cell (WBC) Count 10.9 thou/uL (4.8-10.8)
[2018-08-19 01:30] LABS: ALT (SGPT) 21 U/L (8-55); AST (SGOT) 10 U/L (5-34); Albumin 4.2 g/dL (3.5-5.0); Alkaline Phosphatase 90 U/L (40-150); Anion Gap 12 mmol/L (10-20); BUN (Urea Nitrogen) 19 mg/dL (8.9-20.6); Bilirubin, Total 0.3 mg/dL (0.2-1.2); Calc. Creatinine Clearance 0 mL/min (70-130); Calcium 9.5 mg/dL (7.8-10.44); Carbon Dioxide 23 mmol/L (22-29); Chloride 107 mmol/L (98-107); Estimated GFR-MDRD 89; Globulin 3.2 g/dL (2.4-3.5); Glucose 97 mg/dL (70-105); Potassium 3.9 mmol/L (3.5-5.1); Protein, Total 7.4 g/dL (6.0-8.3); Sodium 138 mmol/L (136-145)
[2018-08-19] MEDS ORDERED: Ondansetron ODT 4 MG TAB ONE (01:36)
[2018-08-19] MEDS ORDERED: Ketorolac Tromethamine 30 MG/ML VIAL ONE (01:43)
[2018-08-19] MEDS ORDERED: Magnesium 2 GM/50 ML BAG (IN WATER) ONE (01:53)
[2018-08-19] MEDS ORDERED: Dexamethasone 10 MG/ML VIAL ONE (01:53)
[2018-08-19] MEDS ORDERED: Ondansetron PF 4 MG/2 ML Vial ONE (02:31)
[2018-08-19] MEDS ORDERED: Meclizine HCl 25 MG TAB ONE (03:43)
[2018-08-19] MEDS ORDERED: Acetaminophen 1,000 MG in Premix Bag 1 BAG IVPB SCH (04:15)
[2018-08-19] MEDS ORDERED: Ondansetron ODT 4 MG TAB SL PRN (04:26)
[2018-08-19] MEDS ORDERED: Acetaminophen 325 MG TAB PO PRN ×2 (04:26→21:14)
[2018-08-19] MEDS ORDERED: HYDROcodone/Acetaminophen 5/325 mg Tablet PO PRN ×2 (04:26)
[2018-08-19] MEDS ORDERED: Ondansetron PF 4 MG/2 ML Vial IVP PRN (04:26)
[2018-08-19] MEDS ORDERED: Morphine 4 MG/ML VIAL SLOW IVP PRN ×2 (04:28→21:16)
[2018-08-19] MEDS: Sodium Chloride 0.45% 1,000 ML IV SCH ×2 (04:35→13:00)
[2018-08-19 05:19] VITALS: BMI 33.7
--- NOTE | 2018-08-19 06:41 | HP ---
This is Ning Renteria PA-C dictating a report for Attila Holt MD. HISTORY OF PRESENT ILLNESS: The patient is a 23-year-old male with a past medical history of arachnoid cyst, status post shunting in March 2011, chronic headaches, depression, and anxiety. The patient underwent shunting of an arachnoid cyst in March 2018 for persistent headaches and dizziness as well as intermittent blurred vision. Following the surgery, he did have improvement of these symptoms, but reports over the last month, he has had return of similar symptoms. He was recently sent for an MRI with and without contrast by Dr. Lemons, which I reviewed with Dr. Holt. There is a left-sided middle cranial fossa arachnoid cyst with shunt in place, which appears similar in size to prior imaging. There is also noted to be an extra-axial fluid collection on the left frontoparietal region which is slightly increased compared to a CT from 07/17/2018. I spoke to the patient on 08/16/2017, regarding worsening headaches and dizziness. At that time, we started the patient on a Decadron taper and Diamox 250 mg daily. The patient reports he began taking these medications right away, but continued to have progression of his dizziness and a syncopal episodes through the evening, which prompted his arrival to the emergency department. The patient was evaluated, has new CT brain noncontrast, which appear stable to prior imaging. PAST MEDICAL HISTORY: Anxiety, depression, chronic headaches, and arachnoid cyst. PAST SURGICAL HISTORY: Shunting of arachnoid cyst in March of 2011, prior HISTORY TEACHER shunt in 2000. FAMILY HISTORY: Noncontributory. SOCIAL HISTORY: The patient does not smoke, drink, or use any drugs. ALLERGIES: HE HAS NO KNOWN DRUG ALLERGIES. REVIEW OF SYSTEMS: Per HPI. PHYSICAL EXAMINATION: VITAL SIGNS: Temperature is 98.0, pulse is 78, respiratory rate 16. The patient is 96% on room air. Blood pressure is 105/73. CONSTITUTIONAL: Awake, alert, in no acute distress. HEENT: Head; normocephalic and atraumatic. Eyes; PERRLA. Extraocular movements intact. ENT; oral mucosa is pink, intact, and moist. The patient has normal voice. NECK: Nontender to palpation. No meningismus or nuchal rigidity. CARDIAC: Regular rate and rhythm. RESPIRATORY: Breathing comfortably with symmetric chest expansion. No evidence of dyspnea. NEUROLOGIC: He is A and O x4. He has 5/5 strength throughout. No focal motor weakness is appreciated. Does appear to have mild dysmetria bilaterally. He has an unsteady gait. ASSESSMENT AND PLAN: We will plan to admit the patient to the observation unit for progression of his headaches, dizziness, and syncopal episode overnight. I will discuss the case with Dr. Lemons as well as his PA, Aby Roman and they will also see the patient. Job ID: [id number]
--- NOTE | 2018-08-19 10:02 | CT ---
FPRELIMINARY REPORT/[facility]/EMERGENCY AFTER HOURS PROCEDURE: EXAM: CT Head Without Contrast EXAM DATE/TIME: 08/19/2018 1:19 AM CLINICAL HISTORY: 23 years old, male; Signs and symptoms; Dizziness; Prior surgery; Surgery date: 1-6 months; Patient HX: H/o vp clinical research shunt placement. Started new medication today. C/O dizziness and syncopal episode tonight TECHNIQUE: Imaging protocol: Axial computed tomography images of the head/brain without contrast. COMPARISON: CT Brain WO Con 03/14/2018 2:00 AM FINDINGS: Tubes, catheters and devices: Left temporal approach drainage catheter within the anterior space left middle cranial fossa, unchanged. Brain: No evidence of acute intracranial hemorrhage, extraaxial fluid or midline shift. No evidence o f acute large vessel infarction. Ventricles: Normal. No ventriculomegaly. Bones/joints: Unremarkable. No acute fracture. Sinuses: Visualized sinuses are unremarkable. No acute sinusitis. Mastoid air cells: Visualized mastoid air cells are unremarkable. No mastoid effusion. Soft tissues: Unremarkable. Other findings: Mild persistent 6 mm left frontoparietal extra-axial space, stable. IMPRESSION: 1. No evidence of acute intracranial hemorrhage, extraaxial fluid or midline shift. 2. No evidence of acute large vessel infarction. 3. Left temporal approach drainage catheter within the anterior space left middle cranial fossa, unchanged. 4. Mild persistent 6 mm left frontoparietal extra-axial space, stable. Thank you for allowing us to participate in the care of your patient. Dictated and Authenticated by: Kimmy Neves MD 08/19/2018 1:51 AM Central Time ([place] & [place]) FINAL REPORT Exam: Head CT without contrast HISTORY: FLORAL ARTIST shunt catheter placement. Patient started new medication today. Dizziness and syncopal ep isode. COMPARISON: 07/17/2018 FINDINGS/IMPRESSION: This report is in agreement with the preliminary report by Anjel[facility]. Stable positioning of a extra-axial catheter in the left middle cranial fossa. Stable extra-axial collection. Stable mild mass effect upo n the left cerebrum without significant change in the brain parenchyma. No significant midline shift. No significant internal change. Transcribed Date/Time: 08/19/2018 10:02 AM
--- NOTE | 2018-08-19 19:57 | PRG ---
DATE OF SERVICE: 08/19/2018 SUBJECTIVE: Briefly, Mr. Dutton is known to our Neurosurgical group well. We saw him approximately a month ago for persistent headaches in our office. He has symptomatic arachnoid cyst. The patient had a previous shunt in 2010 and again in Mar, 2018. He had good progress following the surgery in March for some time, however, lately he has had persistent headaches. This became worse in the last month or so with some associated dizziness in the last couple of weeks. The patient states that, 1 to 2 weeks ago, he started having this dizziness, he woke up one morning with vertiginous symptoms, felt like the room in spinning. The patient states his headaches are worse when he is up and about, and they are improved when he lays horizontal for a period of time. Imaging has been done, MRI and CT, CT done this morning which seems to be consistent with previous MRI and CT. Our associate Ning Fontana PA-C and Dr. Holt saw him last night and admitted due to worsening dizziness and a syncopal episode last night. The patient states that he was driving home last evening, does not remember getting home or going into the house and woke up with his head face down in the couch. He went to emergency department late in the evening for this episode. Today, I see Mr. Dutton in his hospital room, he is resting comfortably, however, he states that if he moves his head too much or gets up out of bed, he feels off balance and gets quite nauseated due to the spinning. He states that his vision is clear and he has a headache approximately 7/10. The headache improves if he lays down; however, the disease worsens. He has been able to rest fairly well and watch a movie on his laptop. OBJECTIVE: VITAL SIGNS: Temperature 97.8, heart rate 79, respirations 19, O2 saturations 97% on room air, blood pressure 117/75. CONSTITUTIONAL: The patient is awake, alert, and does not appear to be in any visible distress. HEENT: Head is normocephalic and atraumatic. Pupils are equal, round, and reactive to light. Extraocular movements are intact. Hearing is intact. Moist mucous membranes. The patient is tender surrounding the shunt bulb in the left temporal area. RESPIRATIONS: Normal work of breathing on room air. NEUROLOGIC: The patient is awake, alert x4. He has 5/5 strength in upper and lower extremities. There are no focal motor, sensory, or motor deficits. Attention and concentration are normal. Speech is spontaneous and fluent. He does have unsteady gait. Ywoegk-cr-kvih is performed smoothly bilaterally. ASSESSMENT AND PLAN: The patient appears to be suffering from over-shunting due to his headaches, dizziness, and positional improvement. We will offer to revise the shunt and change to a programmable if the desires. If this is what he would like, we will make him n.p.o. tae, surgery in the morning. Job ID: [id number] [facility]
--- NOTE | 2018-08-19 20:41 | PRG ---
DATE OF SERVICE: 08/19/2018 SUBJECTIVE: I personally interviewed and examined the patient, reviewed documentation with Ning Renteria PA-C and Aby Roman PA-C, dated 08/18/2018 and 08/19/2018 respectively. Briefly, the Abelardo Dutton is a 23-year-old gentleman on whom we have operated for failure of his prior arachnoid cyst to peritoneal shunt. We put in a very low pressure valve. He came back to see us in the office about 8 weeks ago with what we thought were low-pressure headaches. Assumed blood pressure symptoms would dissipate over time and that he would accommodate to them. Unfortunately, it has not been the case. He came to the Emergency Department yesterday with worsening headache and vertigo. The headache is there when he stands up. It goes away when he lies flat. The vertigo is worse if he stands for long periods of time. There is some minimal end gaze nystagmus. There is no cranial neuropathy. There is no lateralized motor or sensory deficits. I reviewed imaging. There is a middle fossa arachnoid cyst on the left side and a shunt in place. There is some subdural hygroma as was present on previous scans. There is a shift from the right to the left towards the arachnoid cyst. I believe, Mr. Dutton has a low-pressure headache phenomenons. I offered him a shunt exploration tomorrow. I think we can open over the valve to test the flow from the arachnoid cyst and test the distal flow and then replace the valve with a programmable device. We will put in a programmable device at 1.5, which is a medium setting. We can go up or down from there based on symptoms over time. INFORMED CONSENT: I discussed indications, risks, benefits, and alternatives to shunt exploration and valve replacement. The risks we discussed included, but were not limited to bleeding, infection, CSF leak, brain damage, stroke, seizures, paralysis, abdominal organ injury, abdominal pseudocyst, and need for future surgery. Anesthesia complications were also discussed including, but not limited to, . He understands risks and wants to proceed. We will make arrangements for this to happen tomorrow. We will make him n.p.o. after midnight. We used vancomycin as a preoperative antibiotic. Job ID: [id number]
[2018-08-19] MEDS ORDERED: HYDROcodone/Acetaminophen 7.5/325 mg Tablet PO PRN (21:14)
[2018-08-19] MEDS ORDERED: Acetaminophen/Codeine 30-300mg Tablet PO PRN (21:14)
[2018-08-19] MEDS: Sodium Chloride 0.9% 1,000 ML IV SCH (21:55)
[2018-08-19] MEDS: Ondansetron PF 4 MG/2 ML Vial IVP PRN (21:56)
[2018-08-20] MEDS ORDERED: Thrombin 5000 UNITS/5 ML VIAL ONE (08:41)
[2018-08-20] MEDS ORDERED: Lidocaine 0.5%/Epinephrine 1:200,000 50 ml Vial ONE (08:41)
[2018-08-20] MEDS ORDERED: Sodium Chloride 0.9% 10 ML ONE (08:41)
[2018-08-20] MEDS ORDERED: Fentanyl 250 MCG/5 ML VIAL ONE (09:21)
[2018-08-20] MEDS ORDERED: Lidocaine 2% Jelly 5 ML TUBE ONE (09:21)
[2018-08-20] MEDS ORDERED: GENTAMICIN IVPB SCH (09:30)
[2018-08-20] MEDS ORDERED: STERILE WATER IVPB SCH (09:30)
[2018-08-20] MEDS ORDERED: VANCOMYCIN HCL IVPB SCH (09:30)
[2018-08-20] MEDS ORDERED: diphenhydrAMINE 50 MG CAP PO PRN (11:21)
[2018-08-20] MEDS ORDERED: diphenhydrAMINE 50 MG/ML VIAL IVP PRN (11:21)
[2018-08-20] MEDS ORDERED: Mag-Al 1200 mg/1200 mg/30 ML UDCUP PO PRN (11:21)
[2018-08-20] MEDS ORDERED: Acetaminophen/Codeine 30-300mg Tablet PO PRN (11:21)
[2018-08-20] MEDS ORDERED: Cepastat Lozenges 1 LOZ PO PRN (11:21)
[2018-08-20] MEDS ORDERED: Fentanyl 100 MCG/2 ML VIAL ONE ×2 (11:44→12:40)
[2018-08-20] MEDS ORDERED: Promethazine HCl 25 MG/ML VIAL SLOW IVP PRN (12:17)
[2018-08-20] MEDS ORDERED: Promethazine HCl 25 MG/ML VIAL IM PRN (12:17)
[2018-08-20] MEDS ORDERED: Ondansetron HCl/PF 4 MG/2 ML Vial IVP PRN (12:17)
[2018-08-20] MEDS ORDERED: Dexamethasone 20 MG/5 ML VIAL ONE (14:40)
[2018-08-20] MEDS ORDERED: Ondansetron PF 4 MG/2 ML Vial ONE (14:40)
[2018-08-20] MEDS ORDERED: PROPOFOL 200 MG/20 ML VIAL ONE (14:40)
[2018-08-20] MEDS ORDERED: Ketorolac Tromethamine 30 MG/ML VIAL ONE (14:40)
[2018-08-20] MEDS ORDERED: Lidocaine 1% PF 5 ML VIAL ONE (14:40)
[2018-08-20] MEDS ORDERED: Glycopyrrolate 0.2 MG/ML 5 ML SYRINGE ONE (14:40)
[2018-08-20] MEDS ORDERED: Rocuronium Bromide 10 MG/ML (10ML VIAL) ONE (14:40)
[2018-08-20] MEDS: Ondansetron PF 4 MG/2 ML Vial IVP PRN (16:09)
--- NOTE | 2018-08-20 16:46 | OP ---
DATE OF PROCEDURE: 08/20/2018 RECYCLE COORDINATOR: Aby Roman PA-C. PREOPERATIVE INDICATION: Prevent neurological deterioration. PREOPERATIVE DIAGNOSIS: Left middle fossa arachnoid cyst with cystoperitoneal shunt, low-pressure headaches from overdrainage. POSTOPERATIVE DIAGNOSIS: Left middle fossa arachnoid cyst with cystoperitoneal shunt, low-pressure headaches from overdrainage. PROCEDURE PERFORMED: Exploration of cystoperitoneal shunt, replacement of very low pressure valve with programmable Strata valve. PREOPERATIVE MEDICATIONS: Vancomycin 1 g IV. DRAIN NUMBER: Zero. DRAIN TYPE: None. DESCRIPTION OF PROCEDURE: The patient was brought to the operating room. General endotracheal anesthesia was induced. The patient was positioned on the operating table supine and his left shoulder bumped. Head was turned to the right. With electric clippers, removed hair over his previous cystoperitoneal shunt incisions including the left side of the scalp, the neck, the chest, and on the abdomen. We marked out our previous incisions, and under them, they infused local anesthetic. The scalp, neck, chest, and abdomen were sterilely and prepped and draped. We opened the incision over the low-pressure valve behind the ear. We controlled bleeding with bipolar and monopolar cautery. We dissected down to the valve itself. We loosened the connection to the brain catheter and there was brisk CSF flow. We disconnected from the peritoneal catheter, and using a manometer, we proved that the peritoneal catheter was widely patent and there was brisk flow without restriction. We sent the valve for culture. We irrigated copiously with bacitracin irrigation. We then brought a normal-sized Strata valve into the field. We connected it to the peritoneal catheter and reinforced the connection with 2-0 silk tie. We then infused 2 mL of gentamicin/vancomycin and antibiotic solution into the brain catheter. This was then immediately connected to the valve, and that connection was reinforced with 2-0 silk tie. We tacked down the valve to the fascia. We irrigated with bacitracin irrigation. We treated the wound with vancomycin powder, and we closed the wound in anatomical layers. We applied a sterile dressing. This was a clean case, no contamination. Job ID: [id number]
[2018-08-20] MEDS: Sodium Chloride 0.9% 1,000 ML IV SCH (20:30)
[2018-08-20] MEDS: Vancomycin HCl 1 GM in Premix Bag 1 BAG IVPB SCH (20:31)
[2018-08-21 05:03] VITALS: TEMP 97.8
[2018-08-21] MEDS: Vancomycin HCl 1 GM in Premix Bag 1 BAG IVPB SCH (08:00)
[2018-08-21 09:12] VITALS: BP 121/82
== END 2018-08-21 09:51 | disposition home or self-care (01) | DRG 93 ==
LOC: ERS 23:50 → SURG A 08-19 02:55 → OBSVTOIN 08-19 02:55
PROVIDERS: ADMIT Internal Medicine; ATTEND Internal Medicine
PROC: 0JW Subcutaneous Tissue and Fascia, Revision (ICD-10-PCS; principal; 2018-08-20)
DX: Z45.41 Encounter for adjustment and management of cerebrospinal fluid drainage device (principal); G93.0 Cerebral cysts; G44.89 Other headache syndrome; R42 Dizziness and giddiness; R26.81 Unsteadiness on feet
CPT/HCPCS: 36415; 70450; 80053; 85025; 87070; 87205; 93005; A4216; J0131; J1100; J1580; J1885; J2001; J2405; J3010; J3370; J3475; J3490; Q0162

== ENCOUNTER 2018-08-26 03:30 | Emergency (ER) | payer OTHER ==
--- NOTE | 2018-08-26 08:17 | CT ---
CT OF THE BRAIN WITHOUT IV CONTRAST: Date: 08/26/18 INDICATION: History of fall, hitting left side of head; history of LEATHER SPRAYER shunt revision less than 1 week ago, with p atient having persistent headaches. COMPARISON: Prior CT brain exam dated 08/19/18. FINDINGS: No definite acute infarct, hemorrhage, or hydrocephalus is present. The hypodense extra-axial collect ion overlying the left cerebral convexity and the more prominent collection within the anterior left middle cranial fossa is unchanged. There is a ventricular peritoneal catheter entering into the left temporal lobe, into the larger collection of an anterior left middle cranial fossa is stable. The shlomo nt catheter tubing appears intact. There are surgical luz overlying the shunt catheter reservoir overlying the left mastoid region. The skull is intact. Mastoid air cells and visualized paranasal si nuses are clear. IMPRESSION: Stable CT examination of the head. No acute intracranial abnormality. POS: [facility]
--- NOTE | 2018-08-26 08:43 | RAD ---
SIX IMAGES FROM A SHUNTOGRAM: INDICATION: A 23-year-old male with shunt complications. The patient reports falling with a history of surgery l ess than a week. The patient has had persistent headache since before the surgery. COMPARISON: Prior shunt series dated 04/18/2018. FINDINGS: The previously described left sided shunt is not appreciably changed. There are some skin luz ov erlying the left mastoid region reservoir. The tip of the shunt projects into the anterior aspect of the left middle cranial fossa. The catheter tubing appears intact. The previously seen retained po rtions of a prior shunt catheter remain within the left posterior head and neck region. Shunt cathet er tubing as it traverses the subcutaneous tissues of the left aspect of the neck, anterior midline t horax, right upper quadrant abdomen and into the lower pelvis is intact. The tip of the catheter is coiled within the lower pelvis. The visualized lungs are clear. The bowel gas pattern is unobstructed. There is a mild amount of re tained stool within the colon. No acute osseous abnormality is evident. There is very slight levosc oliosis of the lumbar spine which may be positional. IMPRESSION: Intact shunt tubing without overt complication. POS:
== END 2018-08-26 06:39 | disposition home or self-care (01) ==
LOC: ERS 03:30
DX: S30.1XXA Contusion of abdominal wall, initial encounter (principal); R93.0 Abnormal findings on diagnostic imaging of skull and head, not elsewhere classified; F41.9 Anxiety disorder, unspecified; F32.9 Major depressive disorder, single episode, unspecified; Z79.891 Long term (current) use of opiate analgesic; W10.9XXA Fall (on) (from) unspecified stairs and steps, initial encounter
CPT/HCPCS: 70450; 75809; 93005

== ENCOUNTER 2019-06-24 18:41 | Observation (INO) | payer OTHER ==
--- NOTE | 2019-06-24 19:38 | RAD ---
XR Shuntogram History: Headache Comparison: Shuntogram August 2018 Findings: The left shunt catheter is similar appearance with a small kink at right mid abdomen, altho ugh only seen on the AP radiograph as there is no lateral abdomen radiograph performed. There is coiling in the pelvis with tip in the left lower quadrant of the abdomen. Old disconnected c atheter in the neck. Impression: Similar appearance of the shunt catheter with subtle kink in the right mid abdomen incomp letely evaluated without lateral radiograph.
[2019-06-24] MEDS ORDERED: Fluorescein Opthalmic Strip ONE (19:44)
--- NOTE | 2019-06-24 19:53 | CT ---
HEAD CT WITHOUT CONTRAST: 06/24/19 COMPARISON: 08/26/18 HISTORY: Headache. Patient has a OLERICULTURIST shunt. FINDINGS: Redemonstration of a ventriculoperitoneal shunt catheter. The shunt is actually not in the ventricle but in the left middle cranial fossa, subarachnoid space. There is fluid along the left frontal and p arietal/temporal convexity which is unchanged. Stable mild mass effect upon the left cerebrum. No sig nificant midline shift. Basilar cisterns are patent. Stable configuration of the ventricular system. No parenchymal hemorrhage. No extra-axial hematoma. Adequate aeration of the sinuses and mastoid air cells. Calvarium is intact. IMPRESSION: 1. Stable configuration of the ventricular system. 2. Stable extra-axial fluid collection involving the left extra-axial space as described above. 3. Stable OLERICULTURIST shunt catheter. POS: PPP
[2019-06-24] MEDS ORDERED: Proparacaine 0.5% Opth 15 ML BOT ONE (20:10)
[2019-06-24] MEDS ORDERED: Ondansetron ODT 4 MG TAB ONE (20:30)
[2019-06-24] MEDS ORDERED: Ketorolac Tromethamine 30 MG/ML VIAL ONE (21:28)
--- NOTE | 2019-06-24 22:04 | PDOC.EVN ---
Event Note - Event Note Event Note: [id number]
[2019-06-25] LABS: #Basophils 0.1 thou/uL (0.0-0.2); #Eosinphils 0.1 thou/uL (0.0-0.7); #Lymphocytes 2.5 thou/uL (1.20-3.40); #Monocytes 0.5 thou/uL (0.11-0.59); #Neutrophils 6.9 thou/uL (1.40-6.50); %Basophils 0.6 % (0.0-1.0); %Lymphocytes 25.3 % (21.0-51.0); %Monocytes 4.6 % (0.0-10.0); %Neutrophils 68.5 % (42.0-75.0); Hemoglobin 14.3 g/dL (14.0-18.0); Mean Corpuscular HGB CONC 32.5 g/dL (32.0-36.0); Mean Corpuscular Hemoglobin 28.9 pg (27.0-31.0); Mean Corpuscular Volume 88.9 fL (78.0-98.0); Mean Platelet Volume 8.3 fL (7.4-10.4); Platelet Count 295 thou/uL (130-400); RBC Distribution Width 12.2 % (11.5-14.5); Red Blood Cell (RBC) Count 4.94 mill/uL (4.70-6.10)
[2019-06-25 00:20] LABS: Anion Gap 12 mmol/L (10-20); BUN (Urea Nitrogen) 19 mg/dL (8.9-20.6); Calc. Creatinine Clearance 0 mL/min (70-130); Calcium 8.8 mg/dL (7.8-10.44); Carbon Dioxide 25 mmol/L (22-29); Chloride 105 mmol/L (98-107); Estimated GFR-MDRD Greater than 90; Glucose 113 mg/dL (70-105); Potassium 3.9 mmol/L (3.5-5.1); Sodium 138 mmol/L (136-145)
[2019-06-25] MEDS ORDERED: Ondansetron PF 4 MG/2 ML Vial ONE (00:27)
[2019-06-25 01:56] VITALS: BMI 37.6
--- NOTE | 2019-06-25 04:12 | HP ---
CHIEF COMPLAINT: Headache. HISTORY OF PRESENT ILLNESS: Mr. Dutton is a 24-year-old male with history of ventriculoperitoneal shunt placement for arachnoid cyst as a child. He presented to the emergency room with headache, nausea, and gait changes. The patient had another surgery to replace the valve in the shunt last year by Dr. Lemons. The patient stated that he feels like he is going to fall. Denies vomiting, fever, chills, neck pain or stiffness. The ED physician discussed the case with Neurosurgery, who advised to admit the patient under Medical team and Neurosurgeon will see the patient as a consultation. Neurosurgery reviewed the imaging studies. The patient is being admitted to hospital for further management. PAST MEDICAL HISTORY: Ventriculoperitoneal shunt due to arachnoid cyst. PAST SURGICAL HISTORY: Ventriculoperitoneal shunt. Valve replacement on 08/21/2018. PAST PSYCHIATRIC HISTORY: History of anxiety and depression. SOCIAL HISTORY: Denies smoking, drug abuse. Drinks socially. FAMILY HISTORY: Reviewed and noncontributory. HOME MEDICATIONS: Please see home medication reconciliation form for updated medications. ALLERGIES: ALLERGIC TO REGLAN AND PROMETHAZINE. REVIEW OF SYSTEMS: Review of 14 systems negative except what is mentioned in the history of present illness. PHYSICAL EXAMINATION: GENERAL: The patient is awake, alert, in moderate distress. VITAL SIGNS: Blood pressure 117/85, pulse is 77, respiratory rate is 16, temperature 97.8, pulse oximetry is 98% on room air. HEAD: Normocephalic, atraumatic. NECK: Supple. CHEST: Fair bilateral air entry. HEART: S1, S2. Regular. ABDOMEN: Soft, nontender. Bowel sounds present. NEUROLOGIC: Awake, alert, oriented x3. Motor strength, upper and lower extremities equal and decreased visual acuity, right eye. IMAGING DATA: CT of the brain reviewed. X-ray shuntogram reviewed. ASSESSMENT: 1. Intractable headache. 2. Ataxia. 3. History of ventriculoperitoneal shunt. PLAN: 1. Admit. 2. Frequent neuro checks. 3. Neurosurgeon consulted for further management. 4. Symptomatic management for now. 5. Reconcile home medications. 6. DVT prophylaxis as appropriate. 7. Expected length of stay at least 1 midnight if patient is stable and cleared by Neurosurgeon. Job ID: [id number]
[2019-06-25] MEDS: Ketorolac Tromethamine 30 MG/ML VIAL IVP PRN ×3 (08:23→20:54)
[2019-06-25] MEDS ORDERED: FLU VACC QS2019-20(6MOS UP)/PF 60 MCG/0.5 ML SYRINGE IM ONE (09:00)
--- NOTE | 2019-06-25 12:04 | PDOC.HOSPP ---
- Subjective Encounter Date: 06/25/19 Encounter Time: 08:00 Subjective: c/o left temporal area headache and blurry vision, no nausea family at bedside no abd pain or fever - Objective Vital Signs & Weight: Vital Signs (12 hours) Temp Pulse Resp BP Pulse Ox 06/25/19 07:47 97.7 F 63 18 111/72 97 06/25/19 04:58 97.9 F 62 18 120/84 98 06/25/19 01:00 98.0 F 73 18 127/82 99 Weight Weight 309 lb 3 oz I&O: 06/24/19 06/25/19 06/26/19 06:59 06:59 06:59 Intake Total 0 Balance 0 Result Diagrams: 06/24/19 23:52 06/24/19 23:52 Hospitalist ROS - Medication Medications: Active Medications Generic Name Dose Route Start Last Admin Trade Name Freq PRN Reason Stop Dose Admin Ketorolac Tromethamine 15 mg 06/24/19 21:50 06/25/19 08:23 Toradol IVP 06/29/19 21:51 15 mg Q6H PRN Administration Pain - Exam General Appearance: NAD Eye: PERRL, anicteric sclera ENT: no oropharyngeal lesions, moist mucosa Neck: supple, no JVD Heart: RRR, no murmur Respiratory: no wheezes, no rales Gastrointestinal: soft, non-tender, non-distended, normal bowel sounds Extremities: no cyanosis, no edema Neurological: cranial nerve grossly intact, no focal deficits Psychiatric: normal affect, A&O x 3 Hosp A/P (1) Headache Code(s): R51 - HEADACHE Status: Acute (2) TELEPHONIC NURSE (ventriculoperitoneal) shunt status Status: Chronic (3) Obesity (BMI 30-39.9) Code(s): E66.9 - OBESITY, UNSPECIFIED Status: Chronic (4) Arachnoid cyst Code(s): G93.0 - CEREBRAL CYSTS Status: Chronic - Plan CT brain showed no ac abnormalities await NSX opinion, is npo, may feed him if ok with neurosurgery on toradol prn continue home dose adderall, gentle iv fluids dc plan per NSX advice
[2019-06-25] MEDS ORDERED: Ondansetron PF 4 MG/2 ML Vial IVP SCH (13:00)
[2019-06-25] MEDS ORDERED: Dihydroergotamine Mesylate 1 MG/ML AMP SLOW IVP SCH (13:00)
[2019-06-25] MEDS: Sodium Chloride 0.9% 1,000 ML IV SCH (13:37)
[2019-06-25] MEDS: Acetaminophen 325 MG TAB PO PRN ×2 (14:41→20:54)
[2019-06-25] MEDS ORDERED: Valproate Sodium 1,000 MG in Sodium Chloride 0.9% 100 ML IVPB SCH (14:45)
--- NOTE | 2019-06-25 14:58 | CON ---
DATE OF CONSULTATION: Mr. Dutton is a 24-year-old man, who was admitted overnight for concerns about possible shunt dysfunction. He had this shunt placed as a child when he was diagnosed with a large left-sided arachnoid cyst. This was revised by Dr. Lemons in our office in 2018 and then had valve revision of the shunt in the early part of 2019. He returns overnight with symptoms that he recalls to be similar to the 2 times leading up to him having to have those revision, which include nausea, dizziness, somewhat slight gait unsteadiness, head pressure and headache, and visual blurriness. He is also somewhat somnolent this morning, but does arouse after a period of time. is concerned as the time leading up to him having a valve replacement, he also had syncopal events. I reviewed his imaging, which appears to be stable to essentially every CAT scan and angio system dating back to early part of 2018. Shunt is well placed. He is on exam exquisitely tender at the valve site, almost out of proportion to what I would expect given a very light touch use to palpate the site. I discussed with the patient and at bedside that my plan will be to interrogate shunt to evaluate what setting it was at as it used to be 1.5, and we will make adjustments as needed. Upon doing so, the shunt is set between 1 and 1.5, so we will return to its proper setting of 1.5 and then follow up in the outpatient setting. The patient will be discharged today or any time thereafter. Job ID: [id number]
[2019-06-25] MEDS ORDERED: AMPHETAMINE PO SCH (21:00)
[2019-06-25] MEDS ORDERED: DEXTROAMPHETAMINE PO SCH (21:00)
[2019-06-26] MEDS ORDERED: Ondansetron ODT 4 MG TAB PO PRN (00:44)
[2019-06-26] MEDS ORDERED: HYDROcodone/Acetaminophen 7.5/325 mg Tablet PO PRN (00:44)
[2019-06-26] MEDS ORDERED: Ondansetron PF 4 MG/2 ML Vial IVP PRN (00:44)
[2019-06-26] MEDS ORDERED: HYDROcodone/Acetaminophen 7.5/325 mg Tablet PO SCH (00:45)
[2019-06-26] MEDS: Sodium Chloride 0.9% 1,000 ML IV SCH ×2 (01:14→08:00)
[2019-06-26] MEDS: Ketorolac Tromethamine 30 MG/ML VIAL IVP PRN ×2 (03:38→09:34)
[2019-06-26] MEDS: Acetaminophen 325 MG TAB PO PRN ×2 (03:38→09:34)
[2019-06-26] MEDS: HYDROcodone/Acetaminophen 7.5/325 mg Tablet PO PRN ×2 (05:34→11:27)
[2019-06-26 11:07] VITALS: BP 102/70; TEMP 97.6
[2019-06-26] MEDS: Adderall 20 Mg Tablet PO SCH ×2 (12:05→12:06)
--- NOTE | 2019-06-26 17:14 | DIS ---
DATE OF ADMISSION: 06/24/2019 DATE OF DISCHARGE: 06/26/2019 PRIMARY DISCHARGE DIAGNOSES: Right temporal area headache, history of ventriculoperitoneal shunt for arachnoid cyst, obesity. PROCEDURES DONE DURING HOSPITALIZATION: The patient has had shuntogram for the BUDGET TECHNICIAN shunt done, which showed similar appearance of the shunt catheter with subtle kink in the right mid abdomen, incompletely evaluated without lateral radiographs. This was compared to a shuntogram of August 2018. CT brain showed stable configuration of the ventricular system. There was stable extra-axial fluid collection involving the left extra-axial space, which is unchanged from prior CAT scan of August 2018. No significant midline shift was seen. Stable BUDGET TECHNICIAN shunt catheter was noted. DISCHARGE MEDICATIONS: The patient is to continue Adderall 20 mg twice daily and hydroxyzine 1 tablet p.o. q.6 hourly p.r.n. ALLERGIES: METOCLOPRAMIDE AND PROMETHAZINE. INPATIENT CONSULT: [facility]/Dr. Lemons for Neurosurgery. BRIEF COURSE DURING HOSPITALIZATION: The patient initially came in with complaints of headache, specifically in the right temporal area and also was feeling dizzy. In view of history of BUDGET TECHNICIAN shunt, Neurosurgery consultation was requested. The patient has had history of left-sided arachnoid cyst, for which he has had a BUDGET TECHNICIAN shunt for a long time, starting as a child. He has had revision of the shunt and the valve changes done by Dr. Lemons in the past. His valve was interrogated during his stay and the shunt was set between 1 and 1.5. He will need to follow up with Dr. Lemons in the outpatient setting in 2 weeks and primary care physician, Dr. Leonardo Daniel, in 3 days. Prior to discharge, he is ambulating and eating well. Please note I have seen and examined the patient on the day of discharge. Job ID: [id number]
== END 2019-06-26 12:02 | disposition home or self-care (01) ==
LOC: ERS 18:41 → SURG A 21:54
PROVIDERS: ADMIT Internal Medicine; ATTEND Internal Medicine
DX: G93.0 Cerebral cysts (principal); F41.9 Anxiety disorder, unspecified; F32.9 Major depressive disorder, single episode, unspecified; E66.9 Obesity, unspecified; Z68.37 Body mass index [BMI] 37.0-37.9, adult; Z79.899 Other long term (current) drug therapy; Z88.8 Allergy status to other drugs, medicaments and biological substances
CPT/HCPCS: 36415; 70450; 75809; 80048; 85025; 96361; 96365; 96374; 96375; 96376; G0378; J1885; J2405; J3490; Q0162

== ENCOUNTER 2019-06-30 12:39 | Outpatient (CLI) | payer OTHER ==
--- NOTE | 2019-06-30 13:19 | CT ---
EXAM: CT brain without contrast HISTORY: Headache COMPARISON: 06/24/2019 TECHNIQUE: Multiple contiguous axial images were obtained and a CT of the brain without contrast. 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 There is CSF density i n the left middle cranial fossa with a shunt catheter in the left middle cranial fossa. No change has occurred compared to the prior examination. There is no evidence of hydrocephalus or intracranial hemorrhage. The calvarium and overlying soft tissues are unremarkable. The visualized paranasal sinuses and masto id air cells are well aerated. IMPRESSION: Stable exam
== END 2019-06-30 12:40 | disposition home or self-care (01) ==
LOC: SCSCT 12:39
PROVIDERS: ATTEND Neurological Surgery
DX: G91.9 Hydrocephalus, unspecified (principal)
CPT/HCPCS: 70450